=== PATIENT | male | born 1990 | race Caucasian/White ===

== ENCOUNTER 2017-10-02 18:28 | Emergency (ER) | END 2017-10-02 21:41 | disposition home or self-care (01) ==

== ENCOUNTER 2018-05-09 18:24 | Emergency (ER) | END 2018-05-09 20:03 | disposition home or self-care (01) ==

== ENCOUNTER 2018-07-24 16:54 | Emergency (ER) | END 2018-07-24 17:48 | disposition home or self-care (01) ==

== ENCOUNTER 2019-01-25 19:49 | Emergency (ER) | payer SELFPAY ==
[~2019-01-25] VITALS: Ht 170.2 cm; Wt 127.8 kg
[~2019-01-25 19:49] MED LIST: ACET500C5 PO; AZIT250T PO; FAMO-96 PO; PRED20TA PO; PROM5SYR2 PO; RANI150T35 PO
[2019-01-25 19:56] VITALS: Ht 170.2 cm; Wt 127.8 kg
--- NOTE | 2019-01-25 20:39 | ERD ---
ER Documentation Chief Complaint Chief Complaint nasal congestion x 2 days HPI 28-year-old male, with history of chronic sinusitis and multiple visits to the emergency department around the same time of the year, presents to the emergency department, complaining of 6 weeks with progressive nasal obstruction, frontal headache, rhinorrhea, nausea and periorbital pain. 2 days ago, the symptoms got worse, associated with subjective fever, sore throat and ear pain. No medications taken at this time. The patient denies blurred vision, no epistaxis. ROS All systems reviewed and are negative except as per history of present illness. Medications Home Meds Active Scripts Fexofenadine Hcl* (Fexofenadine Hcl*) 180 Mg Tablet, 180 MG PO DAILY, #30 TAB Prov:JIN PEREZ MD 01/25/19 Prednisone* (Prednisone*) 20 Mg Tab, 40 MG PO DAILY for 5 Days, TAB Prov:JIN PEREZ MD 01/25/19 Azithromycin* (Zithromax*) 250 Mg Tablet, 250 MG PO .TriciaPACK DIRECTED, #6 TAB TAKE 500 MG (2 TABS) THE FIRST DAY THEN 250 MG (1 TAB) DAYS 2-5 Prov:JIN PEREZ MD 01/25/19 Ranitidine Hcl* (Zantac*) 150 Mg Tablet, 150 MG PO BID PRN for EPIGASTRIC PAIN for 5 Days, #10 TAB Prov:JIN PEREZ MD 07/24/18 Prednisone* (Prednisone*) 20 Mg Tab, 40 MG PO DAILY for 4 Days, TAB Prov:JIN PEREZ MD 07/24/18 Famotidine* (Pepcid*) 20 Mg Tablet, 20 MG PO DAILY for 10 Days, TAB Prov:BETHANIE CENTENO PA-C 05/09/18 Acetaminophen* (Tylophen*) 500 Mg Capsule, 1 CAP PO Q4 PRN for PAIN AND OR ELEVATED TEMP, #30 CAP Prov:BETHANIE CENTENO PA-C 05/09/18 Promethazine HCl/Codeine (Prometh-Codein 6.25-10 mg/5 ml) 5 Ml Syrup, 5 ML PO TID PRN for COUGH for 5 Days, #120 ML Prov:JIN PEREZ MD 10/02/17 Prednisone* (Prednisone*) 20 Mg Tab, 40 MG PO DAILY for 5 Days, TAB Prov:JIN PEREZ MD 10/02/17 Azithromycin* (Zithromax*) 250 Mg Tablet, 250 MG PO .TriciaPACK DIRECTED, #6 TAB TAKE 500 MG (2 TABS) THE FIRST DAY THEN 250 MG (1 TAB) DAYS 2-5 Prov:JIN PEREZ MD 10/02/17 Allergies Allergies: Coded Allergies: No Known Allergy (Unverified , 12/10/15) PMhx/Soc History of Surgery: Yes (tonsillectomy) Anesthesia Reaction: No Hx Neurological Disorder: No Hx Respiratory Disorders: No Hx Cardiac Disorders: No Hx Psychiatric Problems: No Hx Miscellaneous Medical Probl: No Hx Alcohol Use: Yes (socially ) Hx Substance Use: Yes (cannabis) Hx Tobacco Use: No FmHx Family History: diabetes Physical Exam Vitals Vital Signs Date Temp Pulse Resp B/P (MAP) Pulse Ox O2 O2 Flow FiO2 Time Delivery Rate 01/25/19 97.8 85 20 137/83 98 19:56 (101) Physical Exam Patient alert, oriented, nasal voice, vital signs stable. HEAD: Normocephalic, tenderness over frontal and maxillary sinus. EYES: PERRLA, EOMI, Sclera and conjunctiva appear normal. NOSE: Bulging nasal mucosa, with greenish, thick rhinorrhea. EARS: Canals clear, tympanic membranes WNL. MOUTH: normal lips and tongue, no oral lesions. THROAT: Erythematous oropharynx, no tonsillar exudates. NECK: Supple, No lymphadenopathy. Full ROM without pain or tenderness. HEART: RRR, no rubs, murmurs, clicks or gallops. LUNGS: Clear to auscultation. ABDOMEN: Soft, non-tender without masses or hepatosplenomegaly. EXTREMITIES: No edema bilaterally. BACK: Full ROM, no deformity, normal back exam NEURO: Cranial nerves grossly intact, no motor or sensory deficit SKIN: No rashes, no petechia. Procedures/MDM Vital signs stable, differential diagnosis include but not limited to: Upper versus lower respiratory infection, bacterial/viral/fungal etiology. Asthma, pneumonitis, allergies, less likely meningitis. Low suspicion for acute systemic infection. Physical examination and clinical presentation consistent most likely with chronic sinusitis. During the ED course the patient remained stable, no new complaints. Treatment options and clinical impression discussed with the patient who agrees with management. The patient is stable to be treated outpatient and will be discharged home with a Rx for antibiotics and anti-inflammatories. some side effects of prescribed medications (headache, rash, nausea, vomiting, diarrhea, hypertension, interactions with other medications) were reviewed. The patient was instructed to follow up with the primary care provider in the next 48h. If symptoms persist, worsen or new symptoms develop, then patient should return to the ED immediately. Disclaimer: Inadvertent spelling and grammatical errors are likely due to EHR/dictation software use and do not reflect on the overall quality of patient care. Also, please note that the electronic time recorded on this note does not necessarily reflect the actual time of the patient encounter. Departure Diagnosis: Primary Impression: Chronic sinus infection Condition: Stable Additional Instructions: Thank you very much for allowing us to participate in your care. Your health and safety is our top priority at [facility]. The evaluation in the emergency department has been done to rule out an acute emergency, therefore, chronic conditions like malignancy or other diseases have not been evaluated; therefore, you need to follow up with a primary care provider in the next 48h. If symptoms persist, worsen or new symptoms develop, then patient should return to the ED immediately. Call your primary care doctor TOMORROW for an appointment during the next 2-4 days and bring all the information provided. Have prescriptions filled and follow precisely the directions on the label. If the symptoms get worse and your provider is unavailable, return to the Emergency Department immediately. JIN PEREZ MD Jan 25, 2019 20:39
[2019-01-25] MEDS ORDERED: AZIT250T PO (20:44)
[2019-01-25] MEDS ORDERED: PRED20TA PO (20:44)
[2019-01-25] MEDS ORDERED: FEXO180T13 PO (20:44)
== END 2019-01-25 20:51 | disposition home or self-care (01) ==
LOC: E/R 19:49
DX: J32.9 Chronic sinusitis, unspecified (principal)
CPT/HCPCS: 99283